=== PATIENT | female | born 1990 | race Caucasian/White ===

== ENCOUNTER 2018-08-16 04:20 | Inpatient (IN) | payer BC ==
[2018-08-16] MEDS ORDERED: Sodium Chloride 0.9% 10 ML Syringe FLUSH PRN (05:34)
[2018-08-16] MEDS ORDERED: Nalbuphine 10 MG/1 ML Vial IVPUSH PRN (05:34)
[2018-08-16] MEDS ORDERED: Tranexamic Acid 1,000 MG in Sodium Chloride 0.9% 100 ML IV PRN (05:34)
[2018-08-16] MEDS ORDERED: Methylergonovine 0.2 MG/1 ML Amp IM PRN (05:34)
[2018-08-16] MEDS ORDERED: Misoprostol 200 MCG Tab PO PRN (05:34)
[2018-08-16] MEDS ORDERED: Butorphanol 1 MG/ML SDV IVPUSH PRN (05:34)
[2018-08-16] MEDS ORDERED: Lidocaine 1% 50 ML MDV INJECT PRN (05:34)
[2018-08-16] MEDS ORDERED: Sodium Chloride 0.9% 2.5 ML Syringe FLUSH PRN (05:34)
[2018-08-16] MEDS ORDERED: Water For Irrigation,Sterile 1,000 ML Container IRR PRN (05:34)
[2018-08-16] MEDS ORDERED: Sodium Chloride 0.9% 10 ML SDV IV PRN (05:34)
[2018-08-16] MEDS ORDERED: Ondansetron 4 MG/2 ML SDV IV PRN (05:34)
[2018-08-16] MEDS ORDERED: Carboprost Tromethamine 250 MCG/1 ML Amp IM PRN (05:34)
[2018-08-16] MEDS ORDERED: Lactated Ringers 1,000 ML IV SCH (05:45)
[2018-08-16] MEDS ORDERED: Oxytocin/0.9 % Sodium Chloride 30 UNIT/500 ML BAG IV SCH (05:45)
[2018-08-16] MEDS ORDERED: Bupivacaine 0.25% 10 ML SDV ONE (07:32)
[2018-08-16] MEDS ORDERED: Ropivacaine HCl/PF 100 ML ONE (07:32)
[2018-08-16] MEDS ORDERED: ePHEDrine 50 MG/ML SDV ONE (07:58)
--- NOTE | 2018-08-16 09:05 | PCM.PREANE ---
Preanesthetic Assessment - Procedure Proposed Procedure: labor epidural - Anesthesia/Transfusion/Family Hx Anesthesia History: No Prior Anesthesia Family History of Anesthesia Reaction: No Transfusion History: No Prior Transfusion(s) - Review of Systems General: No Symptoms Pulmonary: No Symptoms Cardiovascular: No Symptoms Gastrointestinal: No Symptoms Neurological: No Symptoms Other: Reports: None - Physical Assessment NPO Status Date: 08/16/18 NPO Status Time: 00:00 Height: 1.65 m Weight: 67.132 kg ASA Class: 2 Dentition: Reports: Normal Dentition Thyro-Mental Finger Breadths: 3 ROM/Head Extension: Full - Lab Values: Laboratory Last Values WBC 5.78 K/uL (4.0-11.0) 08/16/18 06:10 RBC 3.64 M/uL (4.30-5.90) L 08/16/18 06:10 Hgb 11.8 g/dL (12.0-16.0) L 08/16/18 06:10 Hct 36.3 % (36.0-46.0) 08/16/18 06:10 MCV 99.7 fL (80.0-98.0) H 08/16/18 06:10 MCH 32.4 pg (27.0-32.0) H 08/16/18 06:10 MCHC 32.5 g/dL (31.0-37.0) 08/16/18 06:10 RDW Std Deviation 47.2 fl (28.0-62.0) 08/16/18 06:10 RDW Coeff of Saundra 13 % (11.0-15.0) 08/16/18 06:10 Plt Count 198 K/uL (150-400) 08/16/18 06:10 MPV 10.90 fL (7.40-12.00) 08/16/18 06:10 Nucleated RBC % 0.0 /100WBC 08/16/18 06:10 Nucleated RBCs # 0 K/uL 08/16/18 06:10 Blood Type O POSITIVE 08/16/18 06:10 Antibody Screen NEGATIVE 08/16/18 06:10 - Allergies Allergies/Adverse Reactions: Allergies Allergy/AdvReac Type Severity Reaction Status Date / Time No Known Allergies Allergy Verified 10/10/13 09:50 - Blood Blood Available: No Product(s) Available: None - Anesthesia Plan Free Text/Narrative:: labor epidural Pre-Op Medication Ordered: None - Acknowledgements Anesthesia Type Planned: Epidural Pt an Appropriate Candidate for the Planned Anesthesia: Yes Alternatives and Risks of Anesthesia Discussed w Pt/Guardian: Yes Pt/Guardian Understands and Agrees with Anesthesia Plan: Yes PreAnesthesia Questionnaire - Past Health History Medical/Surgical History: Denies Medical/Surgical History HEENT History: Reports: None Cardiovascular History: Reports: None Respiratory History: Reports: None Gastrointestinal History: Reports: None Genitourinary History: Reports: None 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 has lido patch to left side of neck Neurological History: Reports: None Psychiatric History: Reports: None Endocrine/Metabolic History: Reports: None Hematologic History: Reports: None Immunologic History: Reports: None Oncologic (Cancer) History: Reports: None Dermatologic History: Reports: None - SUBSTANCE USE Smoking Status *Q: Never Smoker Second Hand Smoke Exposure: No Recreational Drug Use History: No - HOME MEDS Home Medications: Home Meds Spironolactone 10/10/13 [History] - CURRENT (IN HOUSE) MEDS Current Meds: Current Medications Butorphanol Tartrate (Stadol) 1 mg IVPUSH Q1H PRN PRN Reason: Pain Carboprost Tromethamine (Hemabate Ds) 250 mcg IM ASDIRECTED PRN PRN Reason: Post Hemorrhage Lactated Ringer's (Ringers, Lactated) 1,000 mls @ 150 mls/hr IV ASDIRECTED [facility] Last Admin: 08/16/18 07:16 Dose: 999 mls/hr Oxytocin/Sodium Chloride (Oxytocin 30 Unit/500 Ml-Ns) 30 unit in 500 mls @ 555 mls/hr IV TITRATE [facility] Tranexamic Acid 1,000 mg/ (Sodium Chloride) 110 mls @ 660 mls/hr IV ONETIME PRN PRN Reason: Bleeding Lidocaine HCl (Xylocaine 1%) 50 ml INJECT ONETIME PRN PRN Reason: Laceration repair Methylergonovine Maleate (Methergine) 0.2 mg IM ASDIRECTED PRN PRN Reason: Post Hemorrhage Misoprostol (Cytotec) 200 mcg PO ONETIME PRN PRN Reason: Post Hemorrhage Nalbuphine HCl (Nubain) 10 mg IVPUSH Q1H PRN PRN Reason: Pain (severe 7-10) Ondansetron HCl (Zofran) 4 mg IV Q4H PRN PRN Reason: Nausea/Vomiting Sodium Chloride (Saline Flush) 10 ml FLUSH ASDIRECTED PRN PRN Reason: Keep Vein Open Sodium Chloride (Saline Flush) 2.5 ml FLUSH ASDIRECTED PRN PRN Reason: Keep Vein Open Sodium Chloride (Normal Saline) 10 ml IV ASDIRECTED PRN PRN Reason: IV Use Sterile Water (Sterile Water For Irrigation) 1,000 ml IRR ASDIRECTED PRN PRN Reason: delivery Discontinued Medications Bupivacaine HCl (Sensorcaine-Mpf 0.25%) Confirm Administered Dose 10 ml .ROUTE .[employer]-MED ONE Stop: 08/16/18 07:33 Ephedrine Sulfate (Ephedrine Sulfate) Confirm Administered Dose 50 mg .ROUTE .[employer]MED ONE Stop: 08/16/18 07:59 Ropivacaine (Naropin 0.2%) Confirm Administered Dose 100 mls @ as directed .ROUTE .[employer]MED ONE Stop: 08/16/18 07:33
[2018-08-16] MEDS ORDERED: Lanolin 100% Cream 7 GM Tube ONE (11:40)
[2018-08-16] MEDS ORDERED: Docusate Sodium 100 MG Cap PO PRN (11:41)
[2018-08-16] MEDS ORDERED: Benzocaine/Menthol 20%-0.5% Spray 78 GM Cannister TOP PRN (11:41)
[2018-08-16] MEDS ORDERED: Bisacodyl 10 MG Supp RECTAL PRN (11:41)
[2018-08-16] MEDS ORDERED: Ibuprofen 400 MG Tab PO PRN (11:41)
[2018-08-16] MEDS ORDERED: Acetaminophen 500 MG Tab PO PRN ×2 (11:41)
[2018-08-16] MEDS ORDERED: Lanolin 100% Cream 7 GM Tube TOP PRN (11:41)
[2018-08-16] MEDS ORDERED: Ibuprofen 800 MG Tab PO PRN (11:41)
[2018-08-16] MEDS ORDERED: oxyCODONE 5 MG Tab PO PRN (11:41)
[2018-08-16] MEDS ORDERED: Witch Hazel Medicated Pads 40/Jar TOP PRN (11:41)
--- NOTE | 2018-08-16 11:45 | PCM.DEL ---
L & D Note - General Info Date of Service: 08/16/18 Mother's Due Date: 08/15/18 - Delivery Note Labor: Spontaneous Delivery Outcome: Livebirth Infant Delivery Method: Spontaneous Vaginal Delivery-Single Presentation: Left Occiput Anterior (BERT) Nuchal Cord: None Anesthesia Type: Epidural Amniotic Fluid Description: Clear Episiotomy Type: None Laceration: None Placenta: Intact Cord: 3 Vessels Estimated Blood Loss: 200 Resuscitation Needed: No Score 1 min: 8 Score 5 min: 9 Delivery Comments (Free Text/Narrative):: Live female delivered at 1021am , 8/9 weight 2970g - General Info Date of Service: 08/16/18 - Patient Data Weight - Most Recent: 67.132 kg Lab Results Last 24 Hours: Laboratory Results - last 24 hr 08/16/18 08/16/18 Range/Units 06:10 06:10 WBC 5.78 (4.0-11.0) K/uL RBC 3.64 L (4.30-5.90) M/uL Hgb 11.8 L (12.0-16.0) g/dL Hct 36.3 (36.0-46.0) % MCV 99.7 H (80.0-98.0) fL MCH 32.4 H (27.0-32.0) pg MCHC 32.5 (31.0-37.0) g/dL RDW Std Deviation 47.2 (28.0-62.0) fl RDW Coeff of Saundra 13 (11.0-15.0) % Plt Count 198 (150-400) K/uL MPV 10.90 (7.40-12.00) fL Nucleated RBC % 0.0 /100WBC Nucleated RBCs # 0 K/uL Blood Type O POSITIVE Antibody Screen NEGATIVE Med Orders - Current: Current Medications Butorphanol Tartrate (Stadol) 1 mg IVPUSH Q1H PRN PRN Reason: Pain Carboprost Tromethamine (Hemabate Ds) 250 mcg IM ASDIRECTED PRN PRN Reason: Post Hemorrhage Lactated Ringer's (Ringers, Lactated) 1,000 mls @ 150 mls/hr IV ASDIRECTED [facility] Last Admin: 08/16/18 07:16 Dose: 999 mls/hr Oxytocin/Sodium Chloride (Oxytocin 30 Unit/500 Ml-Ns) 30 unit in 500 mls @ 555 mls/hr IV TITRATE [facility] Tranexamic Acid 1,000 mg/ (Sodium Chloride) 110 mls @ 660 mls/hr IV ONETIME PRN PRN Reason: Bleeding Lidocaine HCl (Xylocaine 1%) 50 ml INJECT ONETIME PRN PRN Reason: Laceration repair Methylergonovine Maleate (Methergine) 0.2 mg IM ASDIRECTED PRN PRN Reason: Post Hemorrhage Misoprostol (Cytotec) 200 mcg PO ONETIME PRN PRN Reason: Post Hemorrhage Nalbuphine HCl (Nubain) 10 mg IVPUSH Q1H PRN PRN Reason: Pain (severe 7-10) Ondansetron HCl (Zofran) 4 mg IV Q4H PRN PRN Reason: Nausea/Vomiting Sodium Chloride (Saline Flush) 10 ml FLUSH ASDIRECTED PRN PRN Reason: Keep Vein Open Sodium Chloride (Saline Flush) 2.5 ml FLUSH ASDIRECTED PRN PRN Reason: Keep Vein Open Sodium Chloride (Normal Saline) 10 ml IV ASDIRECTED PRN PRN Reason: IV Use Sterile Water (Sterile Water For Irrigation) 1,000 ml IRR ASDIRECTED PRN PRN Reason: delivery Discontinued Medications Bupivacaine HCl (Sensorcaine-Mpf 0.25%) Confirm Administered Dose 10 ml .ROUTE .STK-MED ONE Stop: 08/16/18 07:33 Emollient Ointment (Lansinoh Hpa) Confirm Administered Dose 7 gm .ROUTE .STK- MED ONE Stop: 08/16/18 11:41 Ephedrine Sulfate (Ephedrine Sulfate) Confirm Administered Dose 50 mg .ROUTE .STK-MED ONE Stop: 08/16/18 07:59 Ropivacaine (Naropin 0.2%) Confirm Administered Dose 100 mls @ as directed .ROUTE .STK-MED ONE Stop: 08/16/18 07:33 - Problem List & Annotations (1) Vaginal delivery SNOMED Code(s): 798976006 Code(s): O80 - ENCOUNTER FOR FULL-TERM UNCOMPLICATED DELIVERY Status: Acute Current Visit: Yes - Problem List Review Problem List Initiated/Reviewed/Updated: Yes - My Orders Last 24 Hours: My Active Orders 08/16/18 05:34 Patient Status [ADT] Routine Heart Tones [RC] CONTINUOUS Non Stress Test [RC] PER UNIT ROUTINE May Shower [RC] ASDIRECTED Notify Provider [RC] PRN Up ad Sydnie [RC] ASDIRECTED Vaginal Exam [RC] PRN Vital Signs [RC] PER UNIT ROUTINE Butorphanol [Stadol] 1 mg IVPUSH Q1H PRN Carboprost Tromethamine [Hemabate DS] 250 mcg IM ASDIRECTED PRN Lidocaine 1% [Xylocaine 1%] 50 ml INJECT ONETIME PRN Methylergonovine [Methergine] 0.2 mg IM ASDIRECTED PRN Nalbuphine [Nubain] 10 mg IVPUSH Q1H PRN Ondansetron [Zofran] 4 mg IV Q4H PRN Sodium Chloride 0.9% [Normal Saline] 10 ml IV ASDIRECTED PRN Sodium Chloride 0.9% [Saline Flush] 10 ml FLUSH ASDIRECTED PRN Sodium Chloride 0.9% [Saline Flush] 2.5 ml FLUSH ASDIRECTED PRN Tranexamic Acid [Cyklokapron] 1,000 mg Sodium Chloride 0.9% [Normal Saline] 100 ml IV ONETIME Water For Irrigation,Sterile [Sterile Water for Irrigation] 1,000 ml IRR ASDIRECTED PRN miSOPROStol [Cytotec] 200 mcg PO ONETIME PRN Scalp Electrode [WOMSER] Per Unit Routine Peripheral IV Insertion Adult [OM.PC] Routine 08/16/18 05:45 Lactated Ringers [Ringers, Lactated] 1,000 ml IV ASDIRECTED Oxytocin/0.9 % Sodium Chloride [Oxytocin 30 Unit/500 ML-NS] 30 unit in 500 ml IV TITRATE 08/16/18 11:41 May Shower [RC] ASDIRECTED Up ad Sydnie [RC] ASDIRECTED Vital Signs [RC] PER UNIT ROUTINE BLOOD GAS ARTERIAL UMBILICAL [BG] Urgent BLOOD GAS VENOUS UMBILICAL [BG] Urgent Acetaminophen [Tylenol Extra Strength] 1,000 mg PO Q4H PRN Acetaminophen [Tylenol Extra Strength] 500 mg PO Q4H PRN Benzocaine/Menthol [Dermoplast Pain Relief 20%-0.5% [place]] 78 gm TOP ASDIRECTED PRN Bisacodyl [Dulcolax] 10 mg RECTAL ONETIME PRN Docusate Sodium [Colace] 100 mg PO BID PRN Ibuprofen [Motrin] 400 mg PO Q4H PRN Ibuprofen [Motrin] 800 mg PO Q6H PRN Lanolin [Lansinoh HPA] See Dose Instructions TOP ASDIRECTED PRN Witch Christiana [Tucks] 1 pad TOP ASDIRECTED PRN oxyCODONE 5 mg PO Q2H PRN Assess Lochia [WOMSER] Per Unit Routine Assess Uterine Involution [WOMSER] Per Unit Routine Peripheral IV Discontinue [OM.PC] Routine 08/16/18 Lunch Regular Diet [DIET] 08/17/18 05:11 HEMOGLOBIN/HEMATOCRIT,HH [HEME] Timed
--- NOTE | 2018-08-16 13:21 | OR ---
SURGEON: OKSANA ELIZALDE DATE OF PROCEDURE:08/16/2018 PREOPERATIVE DIAGNOSIS: A 27-year-old, G2, P1-0-0-1 at 40 weeks and 1 day in early labor , contractions. POSTOPERATIVE DIAGNOSIS: A 27-year-old, G2, P1-0-0-1 at 40 weeks and 1 day in early labor . PROCEDURE: Normal spontaneous vaginal delivery. ESTIMATED BLOOD LOSS: 300. NOTES AND FINDING: Live female delivered at 10:21 a.m. score was 8 and 9. Weight is 2970 g. BRIEF HISTORY: She is a 27-year-old, G2, P1-0-0-1, came in early labor. She was 4 to 5 cm dilated. She was requesting epidural, received epidural. She may change to fully dilated. She was encouraged to push. DESCRIPTION OF PROCEDURE: The patient being fully dilated, she was encouraged to push. She had good pushing effort. She delivered the head subsequently by the anterior and posterior shoulder, and the body of the infant was delivered. The infant was placed on the maternal abdomen. The cord was clamped and cut. The cord blood gases were obtained. The placenta was delivered via controlled contraction and all instrument and pad counts were correct x2. The patient was left in Labor and Delivery room in stable condition. RISSA UGARTE /[id number] MTDBrenna
--- NOTE | 2018-08-16 17:17 | PCM48HPAN ---
Post Anesthesia Note - EVALUATION WITHIN 48HRS OF ANESTHETIC Vital Signs in Normal Range: Yes Patient Participated in Evaluation: Yes Respiratory Function Stable: Yes Airway Patent: Yes Cardiovascular Function Stable: Yes Hydration Status Stable: Yes Pain Control Satisfactory: Yes (no pain) Nausea and Vomiting Control Satisfactory: Yes Mental Status Recovered: Yes Resp Rate: 15 - COMMENTS/OBSERVATIONS Free Text/Narrative:: pt comfortable and up and walking around, no paresthesias
--- NOTE | 2018-08-17 08:51 | PCM.PNPP ---
- General Info Date of Service: 08/17/18 Functional Status: Reports: Pain Controlled, Tolerating Diet, Ambulating, Urinating - Review of Systems General: Reports: No Symptoms HEENT: Reports: No Symptoms Pulmonary: Reports: No Symptoms Cardiovascular: Reports: No Symptoms Gastrointestinal: Reports: No Symptoms Genitourinary: Reports: No Symptoms Musculoskeletal: Reports: No Symptoms Skin: Reports: No Symptoms Neurological: Reports: No Symptoms Psychiatric: Reports: No Symptoms - General Info Date of Service: 08/17/18 - Patient Data Vital Signs - Most Recent: Last Vital Signs Temp 36.4 C 08/17/18 07:00 Pulse 77 08/17/18 07:00 Resp 16 08/17/18 07:00 BP 93/55 L 08/17/18 07:00 Pulse Ox 97 08/17/18 07:00 Weight - Most Recent: 67.132 kg Lab Results - Last 24 Hours: Laboratory Results - last 24 hr 08/16/18 08/17/18 Range/Units 10:21 04:54 Hgb 10.4 L (12.0-16.0) g/dL Hct 31.9 L (36.0-46.0) % Cord ABG pH 7.152 L (7.18-7.38) Cord ABG Base Excess -8 (-10--2) Cord VBG pH 7.358 (7.25-7.45) Cord VBG Base Excess -5 (-10--2) Med Orders - Current: Current Medications Acetaminophen (Tylenol Extra Strength) 500 mg PO Q4H PRN PRN Reason: Pain Acetaminophen (Tylenol Extra Strength) 1,000 mg PO Q4H PRN PRN Reason: Pain Benzocaine/Menthol (Dermoplast Pain Relief 20%-0.5% [place]) 78 gm TOP ASDIRECTED PRN PRN Reason: Perineal Comfort Measure Bisacodyl (Dulcolax) 10 mg RECTAL ONETIME PRN PRN Reason: Constipation Butorphanol Tartrate (Stadol) 1 mg IVPUSH Q1H PRN PRN Reason: Pain Carboprost Tromethamine (Hemabate Ds) 250 mcg IM ASDIRECTED PRN PRN Reason: Post Hemorrhage Docusate Sodium (Colace) 100 mg PO BID PRN PRN Reason: Constipation Emollient Ointment (Lansinoh Hpa) 0 gm TOP ASDIRECTED PRN PRN Reason: Sore Nipples Lactated Ringer's (Ringers, Lactated) 1,000 mls @ 150 mls/hr IV ASDIRECTED [facility] Last Admin: 08/16/18 07:16 Dose: 999 mls/hr Oxytocin/Sodium Chloride (Oxytocin 30 Unit/500 Ml-Ns) 30 unit in 500 mls @ 555 mls/hr IV TITRATE [facility] Last Admin: 08/16/18 10:23 Dose: 500 mls/hr Tranexamic Acid 1,000 mg/ (Sodium Chloride) 110 mls @ 660 mls/hr IV ONETIME PRN PRN Reason: Bleeding Ibuprofen (Motrin) 400 mg PO Q4H PRN PRN Reason: Pain Ibuprofen (Motrin) 800 mg PO Q6H PRN PRN Reason: Pain Last Admin: 08/16/18 19:27 Dose: 800 mg Lidocaine HCl (Xylocaine 1%) 50 ml INJECT ONETIME PRN PRN Reason: Laceration repair Methylergonovine Maleate (Methergine) 0.2 mg IM ASDIRECTED PRN PRN Reason: Post Hemorrhage Misoprostol (Cytotec) 200 mcg PO ONETIME PRN PRN Reason: Post Hemorrhage Nalbuphine HCl (Nubain) 10 mg IVPUSH Q1H PRN PRN Reason: Pain (severe 7-10) Ondansetron HCl (Zofran) 4 mg IV Q4H PRN PRN Reason: Nausea/Vomiting Oxycodone HCl (Oxycodone) 5 mg PO Q2H PRN PRN Reason: Pain Sodium Chloride (Saline Flush) 10 ml FLUSH ASDIRECTED PRN PRN Reason: Keep Vein Open Sodium Chloride (Saline Flush) 2.5 ml FLUSH ASDIRECTED PRN PRN Reason: Keep Vein Open Sodium Chloride (Normal Saline) 10 ml IV ASDIRECTED PRN PRN Reason: IV Use Sterile Water (Sterile Water For Irrigation) 1,000 ml IRR ASDIRECTED PRN PRN Reason: delivery Witch Christiana (Tucks) 1 pad TOP ASDIRECTED PRN PRN Reason: comfort care Discontinued Medications Bupivacaine HCl (Sensorcaine-Mpf 0.25%) Confirm Administered Dose 10 ml .ROUTE .STK-MED ONE Stop: 08/16/18 07:33 Last Admin: 08/16/18 18:17 Dose: Not Given Emollient Ointment (Lansinoh Hpa) Confirm Administered Dose 7 gm .ROUTE .STK- MED ONE Stop: 08/16/18 11:41 Last Admin: 08/16/18 11:43 Dose: 7 gm Ephedrine Sulfate (Ephedrine Sulfate) Confirm Administered Dose 50 mg .ROUTE .STK-MED ONE Stop: 08/16/18 07:59 Last Admin: 08/16/18 18:17 Dose: Not Given Ropivacaine (Naropin 0.2%) Confirm Administered Dose 100 mls @ as directed .ROUTE .STK-MED ONE Stop: 08/16/18 07:33 Last Admin: 08/16/18 18:17 Dose: Not Given - Interaction Infant Disposition, : in Room with Family Infant Interaction: Holding Infant Feeding: Breastfed ; Nursed Well Support Person: - Recovery Exam Fundal Tone: Firm Fundal Level: 2 Fingerbreadths Below Umbilicus Fundal Placement: Midline Lochia Amount: Small Lochia Color: Rubra/Red Perineum Description: Intact, Minimal Bruising/Swelling Episiotomy/Laceration: None Bladder Status: Voiding - Exam Neck: Supple Lungs: Normal Respiratory Effort GI/Abdominal Exam: Soft, Non-Tender, No Distention Extremities: No Pedal Edema Skin: Warm, Dry, Intact Neurological: No New Focal Deficit Psy/Mental Status: Alert, Normal Affect, Normal Mood - Problem List & Annotations (1) Vaginal delivery SNOMED Code(s): 948489765 Code(s): O80 - ENCOUNTER FOR FULL-TERM UNCOMPLICATED DELIVERY Status: Acute Current Visit: Yes - Problem List Review Problem List Initiated/Reviewed/Updated: Yes - Assessment Assessment:: PPD#1 after , stable, minimal lochia, tolerating diet, doing well with , would like to be discharged today
== END 2018-08-17 12:00 | disposition still patient (30) | DRG 560 ==
LOC: MW.OBCHECK 04:20 → MW.OB 04:33 → MW.OBCHECK 05:34 → MW.OB 05:34 → OBSVTOIN 08-17 08:50
PROVIDERS: ADMIT Obstetrics & Gynecology; ATTEND Obstetrics & Gynecology
PROC: 10E0XZZ Delivery of Products of Conception, External Approach (ICD-10-PCS; principal; 2018-08-17)
PROC: 10907ZC Drainage of Amniotic Fluid, Therapeutic from Products of Conception, Via Natural or Artificial Opening (ICD-10-PCS; 2018-08-17)
PROC: 4A1HXCZ Monitoring of Products of Conception, Cardiac Rate, External Approach (ICD-10-PCS; 2018-08-17)
DX: O48.0 Post-term pregnancy (principal); Z3A.40 40 weeks gestation of pregnancy; Z37.0 Single live birth
CPT/HCPCS: 36415; 51702; 59025; 59409; 82803; 85014; 85018; 85027; 86850; 86900; 86901; A9270-GY; J2590; J7120